=== PATIENT | male | born 1965 | race Caucasian/White ===

== ENCOUNTER 2017-01-29 12:26 | Emergency (ER) | payer OTHER ==
[~2017-01-29] VITALS: Ht 188 cm; Wt 100.7 kg
[~2017-01-29 12:26] MED LIST: DEPAKOTE500 MG PO; KLONOPIN0.5 M1 NG; KLONOPIN1 MG PO; TRAZODONE HCL150 MG PO; TRILEPTAL; WELLBUTRIN SR150 MG PO
[2017-01-29 14:21] LABS: HEMATOCRIT 44.7 % (38.0-50.0); MCH 32.6 PG (29.0-34.0); MCHC 34.7 G/DL (30.0-36.0); MCV 94.1 FL (86-99); MEAN PLAT.VOLUME 9.7 uM^3 (9.0-12.4); NRBC (%) 0.2 /100 WBC (0-0); PLATELET COUNT 251 K/uL (156-360); RBC DIS.WIDTH-CV 13.2 % (11.8-14.6); RBC DIS.WIDTH-SD 46.4 % (39-53); RED BLOOD COUNT 4.75 M/uL (4.00-5.50); WHITE BLOOD COUNT 8.2 K/uL (4.1-10.2)
[2017-01-29 14:32] LABS: CHLORIDE 106 mEq/L (99-109); POTASSIUM 4.7 mEq/L (3.7-5.4); SODIUM 140 mEq/L (136-147)
[2017-01-29 14:34] LABS: GLUCOSE 64 mg/dL (70-99)
[2017-01-29 14:35] LABS: ANION GAP 7 MEQ/L (2-14)
[2017-01-29 14:37] LABS: SERUM ETHYL ALCOHOL < 10 mg/dL
[2017-01-29 14:38] LABS: GFR ESTIMATE (CALCULATED) > 59 mL/min/
[2017-01-29 14:39] LABS: UREA NITROGEN (BUN) 9 mg/dL (9-23)
[2017-01-29 14:46] LABS: AMPHETAMINE NEGATIVE (500 ng/mL); BARBITURATES NEGATIVE (200 ng/mL); BENZODIAZEPINES NEGATIVE (150 ng/mL); COCAINE NEGATIVE (150 ng/mL); INTERNAL CONTROLS VALID? YES; METHADONE NEGATIVE (200 ng/mL); METHAMPHETAMINE NEGATIVE (500 ng/mL); OPIATES (MORPHINE) NEGATIVE (100 ng/mL); OXYCODONE NEGATIVE (100 ng/mL); PHENCYCLIDINE NEGATIVE (25 ng/mL); PROPOXYPHENE NEGATIVE (300 ng/mL); THC CANNABINOIDS NEGATIVE (50 ng/mL); TRICYCLIC ANTIDEPRESSANTS NEGATIVE (300 ng/mL)
[2017-01-29 20:06] VITALS: BP 119/78
== END 2017-01-29 20:07 ==
LOC: EME 12:26
PROVIDERS: Emergency Medicine
DX: F31.12 Bipolar disorder, current episode manic without psychotic features, moderate (principal); R45.851 Suicidal ideations; F10.20 Alcohol dependence, uncomplicated; Y90.0 Blood alcohol level of less than 20 mg/100 ml
CPT/HCPCS: 80048; 85027; 90837; 99281; 99284; G0480

== ENCOUNTER 2017-07-06 11:39 | Emergency (ER) | payer OTHER ==
[~2017-07-06] VITALS: Ht 188 cm; Wt 97.0 kg
[2017-07-06 13:11] LABS: HEMATOCRIT 49.7 % (38.0-50.0); HEMOGLOBIN 17.6 G/DL (12.5-16.6); MCH 32.7 PG (29.0-34.0); MCHC 35.4 G/DL (30.0-36.0); MCV 92.2 FL (86-99); PLATELET COUNT 248 K/uL (156-360); RBC DIS.WIDTH-CV 12.6 % (11.8-14.6); RBC DIS.WIDTH-SD 42.8 % (39-53); RED BLOOD COUNT 5.39 M/uL (4.00-5.50); WHITE BLOOD COUNT 13.9 K/uL (4.1-10.2)
[2017-07-06 13:21] LABS: CHLORIDE 108 mEq/L (99-109); POTASSIUM 4.2 mEq/L (3.7-5.4); SODIUM 138 mEq/L (136-147)
[2017-07-06 13:23] LABS: GLUCOSE 139 mg/dL (70-99)
[2017-07-06 13:26] LABS: SERUM ETHYL ALCOHOL < 10 mg/dL
[2017-07-06 13:27] LABS: CREATININE 0.9 mg/dL (0.6-1.3); GFR ESTIMATE (CALCULATED) > 59 mL/min/ (58.99-99999)
[2017-07-06 13:28] LABS: UREA NITROGEN (BUN) 15 mg/dL (9-23)
[2017-07-06 13:45] LABS: AMPHETAMINE NEGATIVE (500 ng/mL); BARBITURATES NEGATIVE (200 ng/mL); BENZODIAZEPINES PRESUMPTIVE POSITIVE (150 ng/mL); BUPRENORPHINE NEGATIVE (10 ng/mL); COCAINE NEGATIVE (150 ng/mL); METHADONE NEGATIVE (200 ng/mL); METHAMPHETAMINE NEGATIVE (500 ng/mL); OPIATES (MORPHINE) NEGATIVE (100 ng/mL); OXYCODONE NEGATIVE (100 ng/mL); PHENCYCLIDINE NEGATIVE (25 ng/mL); PROPOXYPHENE NEGATIVE (300 ng/mL); THC CANNABINOIDS PRESUMPTIVE POSITIVE (50 ng/mL); TRICYCLIC ANTIDEPRESSANTS PRESUMPTIVE POSITIVE (300 ng/mL)
[2017-07-06 14:18] LABS: BENZODIAZEPINES, URINE SCREEN Negative (200 ng/mL)
[2017-07-06 16:30] VITALS: BP 124/88
== END 2017-07-06 16:30 | disposition home or self-care (01) ==
LOC: EME 11:39
DX: F31.4 Bipolar disorder, current episode depressed, severe, without psychotic features (principal); R45.851 Suicidal ideations; F43.10 Post-traumatic stress disorder, unspecified; Z91.5 Personal history of self-harm; F17.200 Nicotine dependence, unspecified, uncomplicated
CPT/HCPCS: 80048; 84999; 85027; 90839; 99281; 99284; G0480